=== PATIENT | female | born 1955 | race Caucasian/White ===

== ENCOUNTER 2020-04-29 22:09 | Emergency (ER) | payer MEDICARE ==
[~2020-04-29 22:09] MED LIST: ALDACTAZIDE 251 EACH PO; ALDACTONE 25MG25 MG PO; ASPIRIN CHEWABL81 MG PO; ASPIRIN EC81 MG PO; BETAPACE 80MG T80 MG PO; CARVEDILOL12.5 MG PO; CATAPRES 0.1MG0.1 MG PO; CEFUROXIME500 MG PO; CENTRUM SILVER1 EAC1 PO; CLOPIDOGREL75 MG PO; COREG 12.5MG12.5 MG PO; COREG6.25 MG PO; COZAAR100 MG PO; DILTIAZEM 24HR180 M1 PO; DOXYCYCLINE HY100 M2 PO; ELIQUIS 5 MG TAB5 MG PO; FUROSEMIDE40 MG PO; GLUCOPHAGE500 MG PO; GLUCOTROL XL10 MG PO; HUMALOG 10100 UNITS/ SC; HYDROCODON-ACE1 EAC2 PO; IBU600 MG PO; IMDUR ER TAB 3030 MG PO; IMDUR ER TAB 6060 MG PO; K-DUR TAB 10 M10 MEQ PO; KEFLEX CAP 500500 MG PO; LANTUS INS100 UTS/M1 SQ; LASIX40 MG PO; LEVAQUIN750 MG PO; LEVEMIR FL100 UNIT/1 SQ; LEVEMIR100 UNIT/1 SQ; LEVOFLOXACIN250 MG PO; LIPITOR TAB 2020 MG PO; LIPITOR20 MG PO; LISINOPRIL10 MG PO; LISINOPRIL40 MG PO; MAPAP325 MG PO; NORCO 5-325 TA1 EACH PO; NORVASC10 MG PO; NOVOLOG100 UNIT/1 SQ; NYSTATIN60 GM EXT; NYSTATIN60 GM TOP; OMEPRAZOLE20 MG PO; OMNICEF 300 MG300 MG PO; PLAVIX 75 MG TA75 MG PO; PYRIDIUM200 MG PO; RANEXA500 MG PO; SOTALOL80 MG PO; SPIRONOLACTONE1 EACH PO; SYMBICORT 16010.2 GM INH; TAMIFLU75 MG PO; TRAMADOL HCL50 MG PO; VENTOLIN HFA 66.7 GM INH; ZITHROMAX250 MG PO; ZOFRAN4 MG PO
[2020-04-29 23:22] LABS: BUN/CREATININE RATIO 29 (0-10)
[2020-04-30 01:03] LABS: HEMOGLOBIN 7.6 gm/dl (12.3-15.3); RED BLOOD COUNT 3.5 M/UL (4.00-5.10); WHITE BLOOD COUNT 9.4 K/UL (4.5-11.0)
[2020-04-30] MEDS ORDERED: SLOW RELEASE I142 MG PO (02:48)
[2020-05-01] MEDS ORDERED: LEVEMIR FL100 UNIT/1 SQ (22:21)
[2020-10-27] MEDS ORDERED: LEVEMIR FL100 UNIT/1 SQ (11:47)
== END 2020-04-30 04:00 | disposition home or self-care (01) ==
LOC: ER1 22:09
PROVIDERS: Physician Assistant
DX: Z53.8 Procedure and treatment not carried out for other reasons (principal)
CPT/HCPCS: 36600; 71045; 80053; 82550; 82553; 82803; 83605; 83874; 83880; 84484; 85025; 94664; 96374; 99285; J1940

== ENCOUNTER 2020-05-01 17:41 | Inpatient (IN) | payer MEDICARE, OTHER ==
[~2020-05-01] VITALS: Ht 170.2 cm; Wt 170.6 kg
[~2020-05-01 17:41] MED LIST changes: +SLOW RELEASE I142 MG PO
[2020-05-01 19:06] LABS: HEMOGLOBIN 8.2 gm/dl (12.3-15.3); RED BLOOD COUNT 3.59 M/UL (4.00-5.10)
[2020-05-01] MEDS ORDERED: LEVEMIR FL100 UNIT/1 SQ (22:21)
[2020-05-02 04:41] LABS: HEMOGLOBIN 8.1 gm/dl (12.3-15.3); RED BLOOD COUNT 3.57 M/UL (4.00-5.10); WHITE BLOOD COUNT 7.7 K/UL (4.5-11.0)
[2020-05-02 05:01] LABS: BUN/CREATININE RATIO 29 (0-10)
[2020-05-06 05:57] LABS: BUN/CREATININE RATIO 32 (0-10)
[2020-05-06] MEDS ORDERED: OMNICEF 300 MG300 MG PO (11:37)
[2020-05-06] MEDS ORDERED: LASIX40 MG PO (11:38)
--- NOTE | 2020-05-06 13:20 | NUR ---
05/06/2020 1320 REPORT CALLED TO [facility] TO [facility]
[2020-10-27] MEDS ORDERED: LEVEMIR FL100 UNIT/1 SQ (11:47)
== END 2020-05-06 15:30 | disposition home or self-care (01) | DRG 291 ==
LOC: ER1 17:41 → MED SURG 4 20:44 → CDU 20:44 → MED SURG 4 05-02 12:54
PROVIDERS: Emergency Medicine; Internal Medicine; ADMIT Internal Medicine
DX: I13.0 Hypertensive heart and chronic kidney disease with heart failure and stage 1 through stage 4 chronic kidney disease, or unspecified chronic kidney disease (principal); I50.33 Acute on chronic diastolic (congestive) heart failure; J18.9 Pneumonia, unspecified organism; J96.22 Acute and chronic respiratory failure with hypercapnia; J44.0 Chronic obstructive pulmonary disease with (acute) lower respiratory infection; E66.2 Morbid (severe) obesity with alveolar hypoventilation; I47.2 Ventricular tachycardia; I87.8 Other specified disorders of veins; L91.9 Hypertrophic disorder of the skin, unspecified; E78.5 Hyperlipidemia, unspecified; N18.30 Chronic kidney disease, stage 3 unspecified; J45.909 Unspecified asthma, uncomplicated; Z20.822 Contact with and (suspected) exposure to COVID-19; E11.22 Type 2 diabetes mellitus with diabetic chronic kidney disease; Z79.4 Long term (current) use of insulin; Z74.01 Bed confinement status; Z79.899 Other long term (current) drug therapy; Z88.5 Allergy status to narcotic agent; Z79.01 Long term (current) use of anticoagulants; Z90.710 Acquired absence of both cervix and uterus
CPT/HCPCS: 36415; 36600; 71045; 71250; 80048; 80053; 81001; 82270; 82550; 82553; 82803; 82962; 83605; 83690; 83735; 83874; 83880; 84484; 85025; 87040; 94664; 94760; 96365; 96366; 96367; 96374; 96375; 96376; 99285; J0456; J0696; J1940; J2270; J7030; U0002

== ENCOUNTER 2020-11-02 20:41 | Inpatient (IN) | payer MEDICARE ==
[~2020-11-02] VITALS: Ht 170.2 cm; Wt 159.7 kg
[2020-11-02 21:31] LABS: HEMOGLOBIN 11.6 gm/dl (12.3-15.3); RED BLOOD COUNT 4.98 M/UL (4.00-5.10); WHITE BLOOD COUNT 15.5 K/UL (4.5-11.0)
[2020-11-02 23:02] LABS: BUN/CREATININE RATIO 32 (0-10)
[2020-11-03] MEDS ORDERED: FARXIGA10 MG PO (11:42)
[2020-11-03] MEDS ORDERED: SERTRALINE HCL50 MG PO (11:43)
[2020-11-03] MEDS ORDERED: DILTIAZEM 24HR180 M1 PO (11:44)
[2020-11-03] MEDS ORDERED: FUROSEMIDE40 MG PO (11:45)
[2020-11-03] MEDS ORDERED: OMEPRAZOLE20 M1 PO (11:46)
[2020-11-03] MEDS ORDERED: BUSPAR 10MG10 MG PO (11:46)
[2020-11-03] MEDS ORDERED: NOVOLOG FL100 UNIT/1 SQ (22:09)
[2020-11-04 02:37] LABS: HEMOGLOBIN 11.6 gm/dl (12.3-15.3); WHITE BLOOD COUNT 18.1 K/UL (4.5-11.0)
[2020-11-04 03:08] LABS: BUN/CREATININE RATIO 31 (0-10)
[2020-11-05 03:49] LABS: RED BLOOD COUNT 4.72 M/UL (4.00-5.10); WHITE BLOOD COUNT 15.5 K/UL (4.5-11.0)
--- NOTE | 2020-11-05 11:57 | NUR ---
AT 0915 MD PINA TO PATIENT ROOM. EXPLAINED CARDIOVERSION IN DETAIL TO PATIENT WHO VERBALIZED UNDERSTANDING, CONSENT SIGNED AND WITNESSED. RESOURCE NURSE SHREYA PRESENT. RN MAJO, RN KARSTEN PRESENT IN ROOM. CRASH CART IN PLACE PATIENT HOOKED TO LEADS AND PADS, MEDICATIONS GIVEN PER MD AND RN NOTED ON SEDATION SHEET. ONE SHOCK GIVEN PER MD PINA, PATIENT TOLERATED WELL, RYTHM CONVERTED TO NSR. MONITOR PATIENT CLOSELY FOLLOWING PROCEDURE, NO COMPLAINT OF PAIN OR DISCOMFORT NOTED. WILL CONTINUE TO MONITOR.
[2020-11-06 14:21] LABS: ORGANISM ID Not indicated. (.); SPECIMEN SOURCE Urine (.); STREPTOCOCCUS PNEUMONIAE AG Negative (Negative)
[2020-11-07] MEDS ORDERED: AUGMENTIN 875-1 EACH PO (10:22)
[2020-11-07] MEDS ORDERED: NOVOLOG FL100 UNIT/1 SQ (10:25)
== END 2020-11-07 16:41 | disposition home health service (06) | DRG 308 ==
LOC: ER1 20:41 → PROG CARE 11-03 03:40 → CDU 11-03 03:40 → PROG CARE 11-03 12:58
PROVIDERS: Emergency Medicine; Internal Medicine Infectious Disease; Internal Medicine Pulmonary Disease; ADMIT Internal Medicine
PROC: 5A2204Z Restoration of Cardiac Rhythm, Single (ICD-10-PCS; principal; 2020-11-05)
DX: I48.92 Unspecified atrial flutter (principal); J18.9 Pneumonia, unspecified organism; J96.01 Acute respiratory failure with hypoxia; I50.33 Acute on chronic diastolic (congestive) heart failure; R53.2 Functional quadriplegia; E66.2 Morbid (severe) obesity with alveolar hypoventilation; J44.1 Chronic obstructive pulmonary disease with (acute) exacerbation; I13.0 Hypertensive heart and chronic kidney disease with heart failure and stage 1 through stage 4 chronic kidney disease, or unspecified chronic kidney disease; Z68.43 Body mass index [BMI] 50.0-59.9, adult; J44.0 Chronic obstructive pulmonary disease with (acute) lower respiratory infection; I48.20 Chronic atrial fibrillation, unspecified; I47.1 Supraventricular tachycardia; Z20.822 Contact with and (suspected) exposure to COVID-19; E87.5 Hyperkalemia; E11.40 Type 2 diabetes mellitus with diabetic neuropathy, unspecified; E11.65 Type 2 diabetes mellitus with hyperglycemia; I25.10 Atherosclerotic heart disease of native coronary artery without angina pectoris; N18.9 Chronic kidney disease, unspecified; E11.22 Type 2 diabetes mellitus with diabetic chronic kidney disease; B37.9 Candidiasis, unspecified; E89.0 Postprocedural hypothyroidism; Z98.890 Other specified postprocedural states; Z79.82 Long term (current) use of aspirin; Z95.5 Presence of coronary angioplasty implant and graft; Z98.51 Tubal ligation status; Z90.710 Acquired absence of both cervix and uterus; Z87.891 Personal history of nicotine dependence; Z79.4 Long term (current) use of insulin; Z79.01 Long term (current) use of anticoagulants; Z99.81 Dependence on supplemental oxygen; Z88.5 Allergy status to narcotic agent; Z88.8 Allergy status to other drugs, medicaments and biological substances; Z74.01 Bed confinement status
CPT/HCPCS: 0240U; 36415; 36600; 71045; 80053; 81001; 82550; 82553; 82803; 82962; 83605; 83735; 83874; 83880; 84100; 84439; 84443; 84484; 85025; 86140; 87040; 87070; 87081; 87086; 87205; 87278; 87899; 93005; 94640; 94760; 96374; 99285; J1120; J1160; J1200; J1205; J1335; J2020; J2250; J2270; J2543; J2920; Q9967

== ENCOUNTER 2021-02-03 14:47 | Inpatient (IN) | payer MEDICARE, MEDICAID ==
[~2021-02-03] VITALS: Ht 170.2 cm; Wt 152.4 kg
[~2021-02-03 14:47] MED LIST changes: +AUGMENTIN 875-1 EACH PO; +BUSPAR 10MG10 MG PO; +FARXIGA10 MG PO; +NOVOLOG FL100 UNIT/1 SQ; +OMEPRAZOLE20 M1 PO; +SERTRALINE HCL50 MG PO
[2021-02-03 15:38] LABS: HEMOGLOBIN 8.5 gm/dl (12.3-15.3); RED BLOOD COUNT 4.38 M/UL (4.00-5.10); WHITE BLOOD COUNT 7.5 K/UL (4.5-11.0)
[2021-02-03 16:03] LABS: BUN/CREATININE RATIO 25 (0-10)
[2021-02-04 04:57] LABS: HEMOGLOBIN 9.4 gm/dl (12.3-15.3); RED BLOOD COUNT 4.79 M/UL (4.00-5.10); WHITE BLOOD COUNT 5.8 K/UL (4.5-11.0)
[2021-02-04 05:12] LABS: BUN/CREATININE RATIO 26 (0-10)
[2021-02-05 06:50] LABS: HEMOGLOBIN 8.5 gm/dl (12.3-15.3); RED BLOOD COUNT 4.32 M/UL (4.00-5.10)
[2021-02-05 07:27] LABS: WHITE BLOOD COUNT 9.1 K/UL (4.5-11.0)
[2021-02-06 07:25] LABS: HEMOGLOBIN 8.9 gm/dl (12.3-15.3); RED BLOOD COUNT 4.57 M/UL (4.00-5.10)
[2021-02-06 07:26] LABS: WHITE BLOOD COUNT 12.2 K/UL (4.5-11.0)
[2021-02-07 07:08] LABS: HEMOGLOBIN 8.3 gm/dl (12.3-15.3); RED BLOOD COUNT 4.31 M/UL (4.00-5.10); WHITE BLOOD COUNT 13.6 K/UL (4.5-11.0)
[2021-02-08 03:10] LABS: RED BLOOD COUNT 4.07 M/UL (4.00-5.10)
--- NOTE | 2021-02-09 18:21 | NUR ---
PATIENT LOST IV ACCESS. I TRIED X3 AND DE TRIED X3 WITH NO SUCCESS. WILL LET NIGHT NURSE KNOW, DE SAID THAT THERE IS A [employer]OTE [employer] UNDERWRITERALIVIA DIAZ WHO CAN TRY WELL.
[2021-02-10 06:33] LABS: HEMOGLOBIN 8.2 gm/dl (12.3-15.3); RED BLOOD COUNT 4.1 M/UL (4.00-5.10)
[2021-02-11 07:43] LABS: RED BLOOD COUNT 3.11 M/UL (4.00-5.10); WHITE BLOOD COUNT 17.8 K/UL (4.5-11.0)
[2021-02-11 07:44] LABS: HEMOGLOBIN 5.9 gm/dl (12.3-15.3)
[2021-02-11 09:21] LABS: HEMOGLOBIN 6.3 gm/dl (12.3-15.3)
[2021-02-11 12:14] LABS: HEMOGLOBIN 5.7 gm/dl (12.3-15.3)
--- NOTE | 2021-02-11 18:43 | NUR ---
CALLED , PT WAS STILL BLEEDING FROM HER CENTERAL LINE. DOCTOR ORDER DSTAT TO BE PLACED ON CLOT AND FOR PT INR TO BE ORDER
[2021-02-11 20:02] LABS: HEMOGLOBIN 7.2 gm/dl (12.3-15.3)
[2021-02-12 09:52] LABS: RED BLOOD COUNT 3.19 M/UL (4.00-5.10)
[2021-02-12 09:55] LABS: WHITE BLOOD COUNT 12.8 K/UL (4.5-11.0)
[2021-02-12 09:56] LABS: HEMOGLOBIN 6.6 gm/dl (12.3-15.3)
--- NOTE | 2021-02-12 11:16 | NUR ---
DR ARRIAGA AWARE OF FLUID POCKET BETWEEN CLAVICLE AREA AND CENTRAL. LINE. LINE WILL BE MOVED FOR NOW.
--- NOTE | 2021-02-12 12:53 | NUR ---
LEFT IJ REMOVED PT TOLERATED WELL. WILL CONINUE TO MONITOR SITE, SWELLING BUT NOTED.
--- NOTE | 2021-02-12 18:46 | NUR ---
PT CONTINUES TO HAVE ROLDAN CATHETER FOR STRICT I AND O MD ORDERED AND FOR SKIN CARE SHE HAS EXTREMELY FRAIL,THICK,BUMPY SKIN WITH NODULES ALL OVER IT. HAD ALLERGIC REACTION TO PURWICK AND THE DEPENDS AND PLASTIC CHUX.
--- NOTE | 2021-02-12 18:49 | NUR ---
DR ARRIAGA AWARE PT CONTINUES TO HAVE BLEEDING AT POST LIJ SITE DSG CHANGED X 4 THIS SHIFT. MANUAL PRESSURE HAS BEEN HELD WITH NO GOOD RESULTS. DR ARRIAGA ALSO AWARE PATIENTS FAMILY WANTING HIM TO CALL WITH AN UPDATE.
[2021-02-13 07:52] LABS: RED BLOOD COUNT 2.99 M/UL (4.00-5.10); WHITE BLOOD COUNT 10.8 K/UL (4.5-11.0)
[2021-02-13 07:58] LABS: HEMOGLOBIN 6.5 gm/dl (12.3-15.3)
--- NOTE | 2021-02-14 04:41 | NUR ---
PT WAS REPOSITIONED AT 1900, 2005, 2130, 2300, 0045, 0242, 0410. PT HAS CHRONIC BACK PAIN DOES NOT REQUEST PAIN MEDS. PT HAS WAFFLE MATTRESS TO REDUCE SORES. PT NONCOMPLIANT WITH OXYGEN USE WILL DROP INTO LOW 90'S.PT EDUCATED ON THE IMPORTANCE OF WEARING OXYGEN.
[2021-02-14 07:31] LABS: HEMOGLOBIN 7.9 gm/dl (12.3-15.3); WHITE BLOOD COUNT 12.7 K/UL (4.5-11.0)
[2021-02-14 07:39] LABS: RED BLOOD COUNT 3.29 M/UL (4.00-5.10)
--- NOTE | 2021-02-15 05:53 | NUR ---
pt was repositioned every 2 hours. pt refused to speak to daughter when called. Daughter upset with this RN because I would not release information to her, per direction from patient. 4 staff assist with complete bed bath and change of linens. telepads changed. iv and jameson flushed.
[2021-02-15 06:22] LABS: HEMOGLOBIN 8.8 gm/dl (12.3-15.3); WHITE BLOOD COUNT 13.3 K/UL (4.5-11.0)
[2021-02-15 06:24] LABS: RED BLOOD COUNT 3.7 M/UL (4.00-5.10)
[2021-02-16 09:29] LABS: HEMOGLOBIN 8.8 gm/dl (12.3-15.3); RED BLOOD COUNT 3.73 M/UL (4.00-5.10)
[2021-02-16 09:31] LABS: WHITE BLOOD COUNT 19.5 K/UL (4.5-11.0)
--- NOTE | 2021-02-16 16:55 | NUR ---
1530 MD ON FLOOR AND AWARE OF CONTINUED ELEVATED HR. CARDIO ON FLOOR AND CONSULTED. ADENOCARD 6MG GIVEN FAST IV PUSH PER STAT ORDERS. MD AND CARDIO ON FLOOR DURING ADM. PT WITH HR DOWN TO 40 THEN BACK UP TO 140'S. DIGOXIN 0.5MG GIVEN IV PER NEW ORDERS. 1645 NOTIFIED OF PT IN AFIB 80-90'S
[2021-02-17 05:54] LABS: HEMOGLOBIN 8.7 gm/dl (12.3-15.3); RED BLOOD COUNT 3.69 M/UL (4.00-5.10); WHITE BLOOD COUNT 23.7 K/UL (4.5-11.0)
[2021-02-17] MEDS ORDERED: SOTALOL80 MG PO (16:32)
[2021-02-17] MEDS ORDERED: IPRAT-ALBUT 0.5-3 ML NEB (16:32)
[2021-02-17] MEDS ORDERED: FERROUS SULFAT325 M2 PO (16:50)
[2021-02-18 07:52] LABS: HEMOGLOBIN 8.3 gm/dl (12.3-15.3); RED BLOOD COUNT 3.5 M/UL (4.00-5.10); WHITE BLOOD COUNT 20.2 K/UL (4.5-11.0)
[2021-02-18] MEDS ORDERED: LEVEMIR FL100 UNIT/1 SQ (13:48)
--- NOTE | 2021-02-18 15:10 | NUR ---
ROLDAN CATHETER REMOVED AFTER DISCUSSING THE BLOOD IN UROMETER NOTED. PT TOLERATED WELL.
--- NOTE | 2021-02-18 18:04 | NUR ---
awaiting oxygen to be delivered and pt to void for discharge.
--- NOTE | 2021-02-18 20:15 | NUR ---
UPDATED PT'S DAUGHTER (RADHA) REGARDING PT BEING DISCHARGED. PT NOT BEING DISCHARGED BECAUSE SHE IS UNABLE TO VOID AFTER HAVING F/C REMOVED EARLIER TODAY. SEE PROVIDER NOTIFICATIONS FOR DETAILS.
[2021-02-19 06:45] LABS: HEMOGLOBIN 8.1 gm/dl (12.3-15.3); RED BLOOD COUNT 3.37 M/UL (4.00-5.10); WHITE BLOOD COUNT 16.2 K/UL (4.5-11.0)
[2021-02-19 07:11] LABS: BUN/CREATININE RATIO 65 (0-10)
[2021-02-19] MEDS ORDERED: DIFLUCAN 100 M100 MG PO (09:03)
== END 2021-02-19 15:10 | disposition home health service (06) | DRG 177 ==
LOC: ER1 14:47 → MED SURG 4 20:56 → CDU 20:56 → PROG CARE 20:56 → MED SURG 4 02-04 15:15
PROVIDERS: Internal Medicine; Internal Medicine Nephrology; ADMIT Internal Medicine
PROC: 8E0ZXY6 Isolation (ICD-10-PCS; principal; 2021-02-03)
PROC: XW033E5 Introduction of Remdesivir Anti-infective into Peripheral Vein, Percutaneous Approach, New Technology Group 5 (ICD-10-PCS; 2021-02-04)
PROC: 3E0333Z Introduction of Anti-inflammatory into Peripheral Vein, Percutaneous Approach (ICD-10-PCS; 2021-02-04)
PROC: 05HN33Z Insertion of Infusion Device into Left Internal Jugular Vein, Percutaneous Approach (ICD-10-PCS; 2021-02-11)
PROC: 5A0945A Assistance with Respiratory Ventilation, 24-96 Consecutive Hours, High Flow/Velocity Cannula (ICD-10-PCS; 2021-02-12)
PROC: 30233N1 Transfusion of Nonautologous Red Blood Cells into Peripheral Vein, Percutaneous Approach (ICD-10-PCS; 2021-02-13)
DX: U07.1 COVID-19 (principal); J12.82 Pneumonia due to coronavirus disease 2019; J96.21 Acute and chronic respiratory failure with hypoxia; R53.2 Functional quadriplegia; N17.0 Acute kidney failure with tubular necrosis; I50.32 Chronic diastolic (congestive) heart failure; J44.0 Chronic obstructive pulmonary disease with (acute) lower respiratory infection; E66.2 Morbid (severe) obesity with alveolar hypoventilation; E87.3 Alkalosis; T82.838A Hemorrhage due to vascular prosthetic devices, implants and grafts, initial encounter; R80.9 Proteinuria, unspecified; E87.5 Hyperkalemia; I48.0 Paroxysmal atrial fibrillation; G89.29 Other chronic pain; E11.65 Type 2 diabetes mellitus with hyperglycemia; J45.909 Unspecified asthma, uncomplicated; E11.649 Type 2 diabetes mellitus with hypoglycemia without coma; E11.40 Type 2 diabetes mellitus with diabetic neuropathy, unspecified; I87.2 Venous insufficiency (chronic) (peripheral); B37.9 Candidiasis, unspecified; E78.5 Hyperlipidemia, unspecified; D50.9 Iron deficiency anemia, unspecified; I11.0 Hypertensive heart disease with heart failure; Z95.5 Presence of coronary angioplasty implant and graft; Z90.710 Acquired absence of both cervix and uterus; Z98.51 Tubal ligation status; Z98.890 Other specified postprocedural states; Z82.49 Family history of ischemic heart disease and other diseases of the circulatory system; Z74.01 Bed confinement status; Z83.6 Family history of other diseases of the respiratory system; Z90.89 Acquired absence of other organs; Z79.82 Long term (current) use of aspirin; Z79.899 Other long term (current) drug therapy; Z88.8 Allergy status to other drugs, medicaments and biological substances; Z87.891 Personal history of nicotine dependence; Z79.4 Long term (current) use of insulin
CPT/HCPCS: 36415; 36430; 71045; 80048; 80053; 81001; 82550; 82553; 82570; 82607; 82728; 82746; 82962; 83036; 83540; 83550; 83615; 83735; 83874; 83880; 84100; 84132; 84133; 84156; 84300; 84439; 84443; 84484; 85007; 85014; 85018; 85025; 85027; 85045; 85610; 86140; 86850; 86900; 86901; 86920; 87086; 89050; 93005; 94640; 94660; 94760; 96374; 96375; 96376; 97110; 97110-GP-CQ; 97161; 99285; C1751; C9113; J0153; J0461; J0696; J1100; J1120; J1160; J1756; J1940; J2270; J2405; J7030; P9016; P9047; Q9967; U0002

== ENCOUNTER 2021-03-31 03:58 | Inpatient (IN) | payer MEDICARE, MEDICAID ==
[~2021-03-31] VITALS: Ht 172.7 cm; Wt 151.0 kg
[~2021-03-31 03:58] MED LIST changes: +DIFLUCAN 100 M100 MG PO; +FERROUS SULFAT325 M2 PO; +IPRAT-ALBUT 0.5-3 ML NEB
[2021-03-31 05:12] LABS: HEMOGLOBIN 13.6 gm/dl (12.3-15.3); RED BLOOD COUNT 4.93 M/UL (4.00-5.10); WHITE BLOOD COUNT 11.3 K/UL (4.5-11.0)
[2021-04-01 05:45] LABS: WHITE BLOOD COUNT 13.5 K/UL (4.5-11.0)
[2021-04-01 05:55] LABS: HEMOGLOBIN 11.6 gm/dl (12.3-15.3); RED BLOOD COUNT 4.2 M/UL (4.00-5.10)
[2021-04-01] MEDS ORDERED: PHENERGAN 25 MG25 M1 PO (17:29)
[2021-04-01] MEDS ORDERED: ONDANSETRON HCL4 MG PO (17:30)
[2021-04-01] MEDS ORDERED: BUSPIRONE HCL10 MG PO (17:31)
[2021-04-01] MEDS ORDERED: LEVEMIR FL100 UNIT/1 SQ (17:33)
[2021-04-01] MEDS ORDERED: SOTALOL80 MG PO (17:34)
[2021-04-01] MEDS ORDERED: SYMBICORT 16010.2 GM INH (17:37)
[2021-04-01] MEDS ORDERED: ECOTRIN81 MG PO (22:06)
[2021-04-02 05:55] LABS: HEMOGLOBIN 10.5 gm/dl (12.3-15.3); RED BLOOD COUNT 3.86 M/UL (4.00-5.10)
[2021-04-02 06:07] LABS: WHITE BLOOD COUNT 10.1 K/UL (4.5-11.0)
[2021-04-02 09:14] LABS: VITAMIN D, 25-HYDROXY 14.6 ng/mL (30.0-100.0)
[2021-04-02 22:23] LABS: HEMOGLOBIN 10.7 gm/dl (12.3-15.3)
[2021-04-03 05:51] LABS: RED BLOOD COUNT 3.99 M/UL (4.00-5.10)
[2021-04-03 05:57] LABS: WHITE BLOOD COUNT 27.8 K/UL (4.5-11.0)
== END 2021-04-03 16:10 | disposition expired | DRG 871 ==
LOC: ER1 03:58 → CDU 06:38 → CCU 06:38
PROVIDERS: Emergency Medicine; Internal Medicine; Internal Medicine Critical Care Medicine; Internal Medicine Nephrology; ADMIT Internal Medicine
PROC: 3E033XZ Introduction of Vasopressor into Peripheral Vein, Percutaneous Approach (ICD-10-PCS; principal; 2021-03-31)
PROC: 02HV33Z Insertion of Infusion Device into Superior Vena Cava, Percutaneous Approach (ICD-10-PCS; 2021-03-31)
PROC: 8E0ZXY6 Isolation (ICD-10-PCS; 2021-03-31)
PROC: 5A09357 Assistance with Respiratory Ventilation, Less than 24 Consecutive Hours, Continuous Positive Airway Pressure (ICD-10-PCS; 2021-04-02)
PROC: 5A1935Z Respiratory Ventilation, Less than 24 Consecutive Hours (ICD-10-PCS; 2021-04-03)
PROC: 0BH17EZ Insertion of Endotracheal Airway into Trachea, Via Natural or Artificial Opening (ICD-10-PCS; 2021-04-03)
DX: A41.89 Other specified sepsis (principal); R65.21 Severe sepsis with septic shock; U07.1 COVID-19; N17.0 Acute kidney failure with tubular necrosis; R53.2 Functional quadriplegia; G93.41 Metabolic encephalopathy; J96.21 Acute and chronic respiratory failure with hypoxia; J12.82 Pneumonia due to coronavirus disease 2019; J15.9 Unspecified bacterial pneumonia; I50.32 Chronic diastolic (congestive) heart failure; N30.00 Acute cystitis without hematuria; L03.116 Cellulitis of left lower limb; E87.2 Acidosis; J98.11 Atelectasis; L03.115 Cellulitis of right lower limb; Z68.42 Body mass index [BMI] 45.0-49.9, adult; E78.5 Hyperlipidemia, unspecified; G47.33 Obstructive sleep apnea (adult) (pediatric); I87.2 Venous insufficiency (chronic) (peripheral); E66.01 Morbid (severe) obesity due to excess calories; I25.10 Atherosclerotic heart disease of native coronary artery without angina pectoris; I11.0 Hypertensive heart disease with heart failure; E87.6 Hypokalemia; E86.0 Dehydration; D64.9 Anemia, unspecified; I89.0 Lymphedema, not elsewhere classified; Z95.1 Presence of aortocoronary bypass graft; Z66 Do not resuscitate; Z79.01 Long term (current) use of anticoagulants; Z99.81 Dependence on supplemental oxygen; Z95.5 Presence of coronary angioplasty implant and graft; Z98.51 Tubal ligation status; Z90.710 Acquired absence of both cervix and uterus; Z88.8 Allergy status to other drugs, medicaments and biological substances; Z79.4 Long term (current) use of insulin; Z79.899 Other long term (current) drug therapy; Z82.49 Family history of ischemic heart disease and other diseases of the circulatory system; Z87.891 Personal history of nicotine dependence; Z79.82 Long term (current) use of aspirin; Z98.890 Other specified postprocedural states; Z88.5 Allergy status to narcotic agent; Z51.5 Encounter for palliative care
CPT/HCPCS: ECHO; 0240U; 31500; 36415; 36600; 51702; 71045; 71250; 80048; 80053; 80202; 81001; 82330; 82436; 82533; 82550; 82553; 82570; 82652; 82728; 82803; 82962; 83605; 83690; 83735; 83874; 83880; 84100; 84132; 84133; 84156; 84300; 84439; 84443; 84484; 85014; 85018; 85025; 85610; 85730; 86140; 87040; 87086; 93005; 93306; 94640; 94660; 94664; 94760; 96374; 99285; C1751; J0330; J0692; J1644; J1720; J1940; J2060; J2185; J2370; J2704; J3370; J3480; J7030; J7060; J7070; P9047